=== PATIENT | male | born 1995 | race Caucasian/White ===

== ENCOUNTER 2019-03-02 08:01 | Emergency (ER) | payer OTHER ==
[~2019-03-02] VITALS: Ht 180.3 cm; Wt 59.0 kg
--- NOTE | 2019-03-02 08:14 | NUR ---
PT IS A/OX4, PRESENTS TO THE ER REQUESTING FOR A NEW ORTHO REFERRAL FOR HIS FRACTURED L PINKY. PT REPORTS HE WAS SEEN IN [facility] ER FOR HIS L PINKY FX AND REFERRED TO AN ORTHO, BUT THE ORTHO DID NOT ACCEPT HIS INSURANCE. DENIES PAIN, C/P, SOB, N/V/D, DIZZINESS, HEADACHE.
--- NOTE | 2019-03-02 08:19 | NUR ---
LITZY MARTÍNEZ AT BEDSIDE FOR MSE.
--- NOTE | 2019-03-02 08:50 | NUR ---
Patient discharged to home in stable conditon. Written and verbal after care instructions given. Patient verbalizes understanding of instructions. ALL BELONGINGS W/ PT. PT SELF-AMBULATED W/O DIFFICULTY.
[2019-03-02 08:51] VITALS: BP 115/68
== END 2019-03-02 08:58 | disposition home or self-care (01) ==
LOC: ER 08:01
DX: S62.617A Displaced fracture of proximal phalanx of left little finger, initial encounter for closed fracture (principal); X58.XXXA Exposure to other specified factors, initial encounter; Y93.89 Activity, other specified; Y92.89 Other specified places as the place of occurrence of the external cause; Y99.8 Other external cause status
CPT/HCPCS: 73120; A4663